=== PATIENT | female | born 1995 | race African-American/Black ===

== ENCOUNTER → 2022-10-06 09:42 | Outpatient (BNVA) | payer OTHER, SELFPAY | PROVIDERS: PCP Internal Medicine; Visit Provider Advanced Practice Midwife | DX: Z32.01 Encounter for pregnancy test, result positive (principal) | CPT/HCPCS: 81025; 99202 ==

== ENCOUNTER 2024-11-02 11:03 | Outpatient (REF) | payer OTHER, SELFPAY | END 2024-11-02 11:04 | disposition home or self-care (01) | LOC: HO.LAB 11:03 | PROVIDERS: Visit Provider Physician Assistant | DX: L70.0 Acne vulgaris (principal) | CPT/HCPCS: 36415; 84132 ==

== ENCOUNTER 2025-03-04 10:32 | Emergency (ER) | payer OTHER, SELFPAY ==
--- NOTE | 2025-03-04 | ECG_ITS ---
Test Reason : chest pain Blood Pressure : */* mmHG Vent. Rate : 88 BPM Atrial Rate : 88 BPM P-R Int : 136 ms QRS Dur : 78 ms QT Int : 340 ms P-R-T Axes : 44 49 29 degrees QTcB Int : 411 ms Normal sinus rhythm Normal ECG No previous ECGs available Referred By: Generic ED Physician Electronically Signed By: Juan Jose Sheehan
--- NOTE | ~2025-03-04 | XR_ITS ---
EXAMINATION: XR CHEST CLINICAL INFORMATION: cough COMPARISON: None available. TECHNIQUE: PA view of the chest was obtained. FINDINGS: The cardiac, hilar, and mediastinal contours are normal. The lungs are clear bilaterally. No pneumothorax or effusion. No focal osseous or soft tissue abnormality. XR/XR chest 1V IMPRESSION: Normal chest. Electronically signed by: Segun Mitchell MD 03/04/2025 11:04 AM EDT
[2025-03-04 10:50] VITALS: BP 119/73; PULSE 78; RESP 16; TEMP 37.7; O2SAT 98; BMI 26.4
[2025-03-04 12:17] LABS: Influenza A PCR POSITIVE (Negative); Influenza B PCR NEGATIVE (Negative); Resp Syncy Virus RNA Qual PCR NEGATIVE (Negative); SARS COV2 PCR INHOUSE NEGATIVE (Negative)
--- NOTE | 2025-03-04 12:49 | ED.GENADULT ---
HPI - General Adult General Chief complaint: Upper Respiratory Symptoms Stated complaint: CP , covid 1 week ago Time Seen by Provider: 03/04/25 12:47 Source: patient, RN notes reviewed and old records reviewed Mode of arrival: ambulatory Limitations: no limitations History of Present Illness ED Provider: José HPI narrative: 29-year-old female presents for evaluation of cough, chest pain, shortness of breath. Patient reports that she had COVID-19 last week and appeared to be doing better. She states that 3 days ago on Tuesday she started to feel unwell again with her viral symptoms of cough, congestion and some chest pain while coughing. Related Data Home Medications ?Medication ?Instructions ?Recorded ?Confirmed valacyclovir 500 mg tablet 500 mg PO BID 07/30/22 10/06/22 Previous Rx's ?Medication ?Instructions ?Recorded vitamin with calcium 1 tab PO DAILY #90 tabs 10/06/22 no.72-iron 27 mg-folic acid 1 mg tablet ( Vitamins Plus Low Iron) Allergies Allergy/AdvReac Type Severity Reaction Status Date / Time No Known Allergies Allergy Verified 03/04/25 10:54 Review of Systems Constitutional: Constitutional: Reports body ache(s), Reports chills, Reports fever(s) and Reports headache(s) Eyes: Eyes: Denies blurry vision ENT: Reports headache(s) and Reports sore throat Cardiovascular: Cardiovascular: Reports chest pain and Reports dyspnea Respiratory: Respiratory: Reports cough, Reports pain with cough and Reports dyspnea Gastrointestinal: Gastrointestinal: Denies abdominal pain, Denies nausea and Denies vomiting Musculoskeletal: Musculoskeletal: Denies back pain Integumentary/Breasts: Skin/Breast: Denies rash Neurologic: Reports headache(s) [facility] Past Medical History Surgical History (Updated 10/06/22 @ 09:54 by Sowmya Noel MA) H/O cosmetic surgery Family History Family History (Updated 10/06/22 @ 09:55 by Sowmya Noel MA) Paternal Grandmother Breast CA Social History Social History Housing: House Patient Tobacco Use Status: Never used Tobacco e-Cigarette/Vaping Use: Never Used Advance Directives: No Advance Directives Information Provided: Yes Do you have a plan to hurt others: No Plan service: Yes Current occupational status: employed Cognitive needs: No Hearing needs: No Vision needs: No Physical Exam ED Vital Signs: Vital Signs - 24 hr 03/04/25 10:50 Temperature 99.9 F Pulse Rate 78 Respiratory Rate 16 Blood Pressure 119/73 Pulse Oximetry 98 Oxygen Delivery Method Room Air BMI result Body Mass Index 26.4 Const General: healthy appearing, comfortable, no acute distress, alert and awake Nutritional Appearance: well nourished Orientation/consciousness: patient oriented x3 HENMT Head: Yes normocephalic and Yes atraumatic Eyes Eyelids: Yes eyelids normal Conjunctivae: conjunctivae normal Sclerae: sclerae normal Corneas: corneas normal Pupils: Equal, round and reactive pupils present EOM: EOMs intact bilaterally Neck Neck: Yes full ROM Resp Effort & Inspection: normal respiratory effort, able to speak in complete sentences, no audible wheezes and not labored Auscultation: clear to auscultation bilaterally Cardio Rate: regular rate Rhythm: regular rhythm Skin General skin exam: elasticity normal Neuro General: patient oriented x3 Cranial nerves: Yes Equal, round and reactive pupils present and Yes Bilaterally intact EOM present Cognition (Neuro): normal cognition Extrem Other: Moving all extremities well without any obvious deformities Medical Decision Making Medical Decision Making MDM Narrative: 29-year-old female presents for evaluation of cough and flu-like symptoms. She recently had COVID-19. Chest x-ray is clear, no evidence of post viral pneumonia. EKG is nonischemic. Viral swabs are now positive for influenza which explains the patient's symptoms. She was well-appearing, she was not hypoxic or septic. She was outside the window for Tamiflu treatment. Plan to discharge with symptomatic care only Differential Diagnosis Differential Diagnoses: The differential diagnosis associated with the presentation includes Influenza COVID-19 Postviral pneumonia Bronchitis Costochondritis Admission/Observation Consideration of admission/observation: Escalation of care including admission/observation considered Lab Data Labs: Lab Results 03/04/25 Range/Units 11:31 Influenza Type A (PCR) POSITIVE A (Negative) Influenza Type B (PCR) NEGATIVE (Negative) RSV RNA Qual (PCR) NEGATIVE (Negative) SARS-CoV-2 RNA (RT-PCR) NEGATIVE (Negative) Independent Interpretation I performed an independent interpretation of an: EKG (Normal sinus rhythm with a rate of [address] segment changes) and Plain X-Ray Interpretation: No focal infiltrates Radiology Impression Discussion of test interpretation with radiology: I have reviewed the radiologist's reading. Radiologist Impression: FINDINGS: The cardiac, hilar, and mediastinal contours are normal. The lungs are clear bilaterally. No pneumothorax or effusion. No focal osseous or soft tissue abnormality. XR/XR chest 1V IMPRESSION: Normal chest. Electronically signed by: Segun Mitchell MD 03/04/2025 11:04 AM EDT RP Discharge Plan Discharge Clinical Impression: Influenza Patient Disposition: Home, Self-Care Instructions: Influenza (ED) Additional Instructions: Your chest x-ray was clear, your EKG was normal. You tested positive for influenza. This is the cause of your cough and likely chest pain Use ibuprofen/Tylenol for fevers, chills, pain Follow-up with your primary doctor, return for new or worsening symptoms Prescriptions: No Action valacyclovir 500 mg tablet 500 mg PO BID Vitamin Plus Low Iron 27 mg iron- 1 mg tablet 1 tab PO DAILY Qty: 90 5RF Stand Alone Forms: Work/School Release Print Language: Moroccan
[2025-03-04 13:08] VITALS: BP 119/73; PULSE 78; RESP 16; TEMP 37.7; O2SAT 98
--- OUTSIDE RECORDS SUMMARY | 2025-03-04 15:32 | XMS_ITS | Clinical Summary ---
Author Organization [facility] [address] [facility] Address [address] [place] [address] Phone Care Team Providers Care Industrial Machinery Mechanic Name Role Phone Physician, No Pcp Primary Care Provider Unavaila ble Allergies Active Allergy Reactions Criticality Noted Date Comments Other Swelling High 11/25/2022 Shellfish Allergy: Throat swells Medications valACYclovir (VALTREX) 500 mg tablet Take 1 Tablet by mouth 2 times daily. 4 Active 25/iron fum/folic/dha (-1 ORAL) Take by mouth. Activ e spironolactone (ALDACTONE) 100 mg tablet Take by mouth. Activ e metroNIDAZOLE (METROGEL) 0.75 % (37.5mg/5 gram) vaginal gel Insert 5 g vaginally twice weekly for 6 months 70 g 2 5 Active metroNIDAZOLE (FLAGYL) 500 mg tablet Take 1 tablet (500 mg total) by mouth 2 (two) times a day for 7 days. Do not use mouth wash or consume alcohol until 48 hours after last dose 14 tablet 5 02/05/20 25 Active Problems Problem Noted Date Diagnosed Date Recurrent vaginitis 01/29/2025 Assessment & Plan (01/29/2025 2:17 PM EDT): I counseled the patient that recurrent BV is defined as 3 or more episodes of microscopically or Amsel's confirmed bacterial vaginosis in 12 months. I recommended sitz bath, gentle cleansing, topical petrolatum, avoidance of irritants or tight clothing. Use condoms if she should become sexually active. Will treat as follows: 1) Metronidazole 500 mg orally twice a day x seven days 2) Boric acid capsules 600 mg inserted vaginally for 21 nights (can buy on [employer], DO NOT INGEST CAN BE FATAL, KEEP OUT OF REACH OF CHILDREN) 3) Metrogel twice weekly x 6 months See any provider with a wet prep and yeast culture to lab with symptoms. Vaginal discharge 01/29/2025 OCD (obsessive compulsive disorder) 12/08/2022 Overview (09/05/2024): Sees therapist for this. No meds. Exercise-induced asthma 12/07/2022 Genital herpes 12/07/2022 Overview (09/05/2024): 12/08/22 Taking valtrex daily LGSIL on Pap smear of cervix 12/07/2022 Overview (09/05/2024): HPV+ Encounters Date Type Department Care Team Description 01/28/2025 9:45 AM EDT Office Visit Obstetrics and Gynecology [address] [phone] Hannah Rodriguez MD Recurrent vaginitis (Primary Dx); Vaginal discharge from Last 3 Months Immunizations Name Administration Dates Next Due Rubella 11/11/2022 Tb Skin Test 07/29/2022 Tdap Tetanus diptheria acell ular pertussis (Boostrix; Adacel) 7yo and older 03/16/2023 Surgical History Surgery Date Site/Laterality Comments OTHER SURGICAL HISTORY 2019 PROCEDURE: HISTORICAL COSMETIC SURGERY; COMMENT: Citizen Of [place] Butt lift. done in BREAST SURGERY 2019 PROCEDURE: MO BREAST AUGMENTATION WITH IMPLANT; COMMENT: breast lift -denies any removal of breast or mammary tissue. done in OTHER SURGICAL HISTORY PROCEDURE: EXTRACTION ERUPTED TOOTH/EXR; COMMENT: had root canal and couple teeth removed for braces Medical History Medical History Date Comments Genital herpes DX:Genital herpe s; COMMENT: gets outbreak once a month, had 3 recent outbreak 11/2022. Adhd DX:ADHD; COMMENT : transfer records. no meds Exercise-induced asthma DX:Exerc ise-induced asthma; COMMENT: transfer records. no inhaler in few years, states very mild OCD (obsessive compulsive disorder) DX:OCD (obsessive compulsive disorder); COMMENT: transfer records - in therapy for this, no meds History of varicella as a child DX:History of varicella as a child; COMMENT: transfer records Rhabdomyolysis 2017 DX:Rhabdomyolysi s LGSIL on Pap smear of cervix 11/10/2022 DX: LGSIL on Pap smear of cervix; COMMENT: needs colpo post Migraine headache without aura D X:Migraine headache without aura Family History Medical History Relation Name Comments Diabetes Brother 1 Juvenile diabet es Dx 11 months Heart attack Brother 1 x1 No Known Problems Brother 2 Diabetes Father Juvenile diabet es (insulin) Heart attack Father x1 No Known Problems Maternal Grandfather No Known Problems Maternal Grandmother Anemia Mother Arthritis Mother No Known Problems Paternal Grandfather Breast cancer Paternal Grandmother Diabetes Paternal Grandmother type 2 Bipolar disorder Sister didn't comp lete testing to see if on autism spectrum Cervical cancer Neg Hx Colon cancer Neg Hx Ovarian cancer Neg Hx Pancreatic cancer Neg Hx Prostate cancer Neg Hx Uterine cancer Neg Hx Relation Name Status Comments Brother 1 Alive Brother 2 Alive Father Alive Maternal Grandfather Alive Maternal Grandmother Alive Mother Alive Paternal Grandfather Alive Paternal Grandmother Alive Sister Alive Social History Tobacco Use Types Packs/Day Years Used Date Smoking Tobacco: Never Smokeless Tobacco: Never Alcohol Use Standard Drinks/Week Comments Never 0 (1 standard drink = 0.6 oz pur e alcohol) Comments No Sex and Gender Information Value Date Recorded Sex Assigned at Not on file Legal Sex Female 8:51 PM EST Gender Identity Not on file Sexual Orientation Not on file Obstetrics History Para Term AB IAB SAB Ectopic Multiple Livin g Live Births 1 1 1 1 1 Date Outcome GA Total Labor Labor/2nd/3rd Weight Sex Type Anes PTL Tracy A1 A5 Name Clin 2022 Term 39w 2d M CS-LT ranv Living Last Filed Vital Signs Vital Sign Reading Time Taken Comments Blood Pressure 108/72 01/28/2025 9:52 AM EDT Pulse 80 01/28/2025 9:52 AM EDT Temperature - - Respiratory Rate 16 01/28/2025 9:52 AM EDT Oxygen Saturation - - Inhaled Oxygen Concentration - - Weight 69 kg (152 lb 3.2 oz) 01/28/2025 9:52 AM EDT Height 160 cm (5' 3 ) 01/28/2025 9:52 AM EDT Body Mass Index 26.96 01/28/2025 9:52 AM EDT Plan of Treatment Upcoming Encounters Date Type Department Care Team (Late st Contact Info) Description 03/28/2025 4:00 PM EDT Office Visit Obstetrics and Gynecology - [address] [phone] Hannah Rodriguez MD [address] [place] [address] 03/28/2025 4:00 PM EDT Consult General Surgery - [place] [address] [facility] [address] [place] [address] Parish Wilson MD [address] [facility] [address] [place] [address] Health Maintenance Due Date Last Done Comments Pneumococcal Vaccine: Pediatrics (0 to 5 Years) and At-Risk Patients (6 to 64 Years) (1 of 2 - PCV) 2012 Cervical Cancer Screening: Pap Smear 2014 IPV Vaccines (2 of 3 - Adult catch-up series) 04/25/2015 03/28/2015 Depression Screening 12/02/2023 Social Influencers of Health Screening 12/02/2023 COVID-19 Vaccine ( - season) 2024 12/13/2021, 02/25/2021, 01/28/2021 DTaP,Tdap,and Td Vaccines (3 - Td or Tdap) 03/16/2033 03/16/2023, 03/28/2015 Hepatitis A Vaccines Aged Out 03/28/2015, 06/21/20 14 No longer eligible based on patient's age to complete this topic Meningococcal ACWY Vaccine Aged Out 03/28/2015 N o longer eligible based on patient's age to complete this topic MMR Vaccines Aged Out 05/30/2015, 03/28/2015 No lo nger eligible based on patient's age to complete this topic Hepatitis B Vaccines Completed 11/15/2015, 03/28/2015, 06/21/2014 HIV Screening Completed 11/14/2023 Hepatitis C Screening Completed 11/14/2023 Influenza Vaccine Completed 09/04/2024, , 08/23/2020, Additional history exists HIB Vaccines Aged Out No longer eligi ble based on patient's age to complete this topic HPV Vaccines Aged Out No longer eligi ble based on patient's age to complete this topic Meningococcal B Vaccine Aged Out No l onger eligible based on patient's age to complete this topic RSV Immunization Patients Under 20 months Aged Out No longer eligible based on patient's age to complete this topic Varicella Vaccines Aged Out No longer eligible based on patient's age to complete this topic Procedures Procedure Name Priority Date/Time Associated Diagnosis Comments TRICHOMONAS VAGINALIS ANTIGEN Routine 01/28/2025 1:02 PM EDT Vaginal discharge Recurrent vaginitis POC SARTHAK TEST, HAIR/SKIN/NAILS Routine 01/28/2025 12:57 PM EDT Vaginal discharge Recurrent vaginitis POC WET MOUNT Routine 01/28/2025 12:56 PM EDT Vaginal discharge Recurrent vaginitis HEPATITIS C SCREENING Routine 11/14/2023 HIV SCREENING Routine 11/14/2023 from Last 3 Months or Most Recently Relevant to Health Maintenance Results * Trichomonas vaginalis antigen (01/28/2025 1:02 PM EDT) Trichomonas vaginalis Negative Negative 01/28/2025 7:30 PM EDT [facility] Swab Vaginal structure / Unknown Non-blood Collection / Unknown 01/28/2025 1:02 PM EDT 01/28/2025 1:02 PM EDT us Hannah Rodriguez MD LAB MICROBIOLOGY - GENERAL ORDERABLES Final Result [facility] [address] [place] [address], [place] [phone] * (ABNORMAL) POC SARTHAK TEST, Hair/Skin/Nails (01/28/2025 12:57 PM EDT) SARTHAK POC Positive Vaginal Fluid 01/28/2025 12: 57 PM EDT Hannah Rodriguez MD POINT OF CARE TEST ENTER/ED IT ORDERABLES Final Result * (ABNORMAL) POC Wet Mount (01/28/2025 12:56 PM EDT) Trichomonas, Wet Prep POC Absent Absent Yeast, Wet Prep POC Negative Not Applicable, Negative Clue Cells, Wet Prep POC Positive(A) Not Applicable, Negative WBC, Wet Prep POC Negative Not Applicable, Negative RBC, Wet Prep POC Negative Not Applicable, Negative Bacteria, Wet Prep POC Positive(A) Not Applicable, Negative Whiff Test, Wet Prep POC Positive(A) Not Done, Negative PH FL Type POC 5 Vaginal Fluid Vaginal structure / Unknown 01/28/2025 12:56 PM EDT Hannah Rodriguez MD POINT OF CARE TEST ENTER/ED IT ORDERABLES Final Result * HIV Screening (11/14/2023) HIV Screening Abstracted Historical Provider HEALTH MAINTENANCE Final Result * Hepatitis C Screening (11/14/2023) Hepatitis C Screening Abstracted Historical Provider HEALTH MAINTENANCE Final Result from Last 3 Months or Most Recently Relevant to Health Maintenance Insurance [facility] Care Teams Industrial Machinery Mechanic Relationship Specialty Start Date End Date Physician, No Pcp PCP - General 01/28/25
== END 2025-03-04 13:09 | disposition home or self-care (01) ==
PROVIDERS: Emergency Provider Emergency Medicine Emergency Medical Services
DX: J10.1 Influenza due to other identified influenza virus with other respiratory manifestations (principal); R07.89 Other chest pain; R06.02 Shortness of breath; Z79.899 Other long term (current) drug therapy; Z03.818 Encounter for observation for suspected exposure to other biological agents ruled out
CPT/HCPCS: 0241U; 71045; 93005; 99283

== ENCOUNTER → 2025-03-04 10:37 | Outpatient (BNV) | payer OTHER, SELFPAY | PROVIDERS: Emergency Provider Emergency Medicine Emergency Medical Services; Visit Provider Internal Medicine Cardiovascular Disease | DX: R07.9 Chest pain, unspecified (principal) | CPT/HCPCS: 93010 ==

== ENCOUNTER → 2025-03-04 11:00 | Outpatient (BNV) | payer OTHER, SELFPAY | PROVIDERS: Visit Provider Radiology Diagnostic Radiology | DX: R05.9 Cough, unspecified (principal) | CPT/HCPCS: 71045 ==